=== PATIENT | female | born 1945 | race Caucasian/White ===

== ENCOUNTER 2023-02-04 14:01 | Inpatient (IN) | payer MEDICARE, OTHER ==
[~2023-02-04] VITALS: Ht 165.1 cm; Wt 89.7 kg
[2023-02-04] MEDS ORDERED: CALC-953 PO (14:36)
[2023-02-04] MEDS ORDERED: MULT-213 PO (14:36)
[2023-02-04] MEDS ORDERED: LISI40TA13 PO (14:36)
[2023-02-04] MEDS ORDERED: ACET325C7 PO (14:36)
[2023-02-04] MEDS ORDERED: ASPI-1420 PO (14:36)
[2023-02-04] MEDS ORDERED: ASCO-340 PO (14:36)
[2023-02-04] MEDS ORDERED: HYDR50TA4 PO (14:36)
[2023-02-04] MEDS ORDERED: CLON0.3T PO (14:36)
[2023-02-04 14:43] LABS: BASOPHILS # (AUTO) 0.2 K/uL (0.0-0.2); BASOPHILS % (AUTO) 1.2 % (0.0-2.0); EOSINOPHILS % (AUTO) 0.1 % (0.0-6.0); HEMATOCRIT 34 % (33-45); HEMOGLOBIN 10.9 g/dL (11.5-14.8); LYMPHOCYTES # (AUTO) 0.4 K/uL (0.8-4.8); LYMPHOCYTES % (AUTO) 3.2 % (20.0-44.0); MEAN CORPUSCULAR HEMOGLOBIN 29 PG (26.0-33.0); MEAN CORPUSCULAR HGB CONC 32 g/dl (31.0-36.0); MEAN CORPUSCULAR VOLUME 91 fL (82-100); MONOCYTES # (AUTO) 0.4 K/uL (0.1-1.30); MONOCYTES % (AUTO) 3.2 % (2.0-12.0); NEUTROPHILS # (AUTO) 12.8 K/uL (1.8-8.9); NEUTROPHILS % (AUTO) 92.3 % (43.0-81.0); PLATELET COUNT (AUTO) 699 K/uL (150-450); RED BLOOD CELL COUNT(AUTO) 3.74 MIL/uL (4.0-5.2); RED CELL DISTRIBUTION WIDTH 14.4 % (11.5-15.0); WHITE BLOOD COUNT (AUTO) 13.9 K/uL (4.3-11.0)
[2023-02-04 15:05] LABS: CALCIUM, SERUM 10.8 mg/dL (8.5-10.1); CARBON DIOXIDE 19 mmol/L (21-32); CHLORIDE 97 mmol/L (98-107); CREATININE 2.8 mg/dL (0.6-1.3); GLUCOSE 219 mg/dL (74-106); SODIUM SERUM 137 mmol/L (136-145); UREA NITROGEN, BLOOD 111 mg/dL (7-18)
[2023-02-04 15:09] LABS: BAND % (MANUAL) 11 % (0.0-5.0); LYMPHOCYTES % (MANUAL) 9 % (16-48); MONOCYTES % (MANUAL) 6 % (0-11.0); NEUTROPHILS % (MANUAL) 74 (42-76); PLATELET ESTIMATE INCREASED
[2023-02-04 15:12] LABS: ALANINE AMINOTRANSFERASE 11 U/L (12-78); ALBUMIN 2.2 g/dL (3.4-5.0); ALCOHOL, BLOOD < 3 mg/dL (0-10); ALKALINE PHOSPHATASE 104 U/L (46-116); ASPARTATE AMINOTRANSFERASE 16 U/L (15-37); BILIRUBIN,DIRECT 0.2 mg/dL (0.0-0.2); BILIRUBIN,TOTAL 0.4 mg/dL (0.2-1.0); SALICYLATE 3.5 mg/dL (2.8-20.0); TOTAL PROTEIN, SERUM 7.4 g/dL (6.4-8.2)
[2023-02-04 15:13] LABS: ACETAMINOPHEN 0 ug/ml (10-30)
[2023-02-04 15:16] LABS: APPEARANCE,URINE TURBID (CLEAR); BILIRUBIN,URINE 1+ (NEGATIVE); BLOOD, URINE 1+ Ery/uL (NEGATIVE); COLOR,URINE YELLOW (YELLOW); KETONES,URINE TRACE mg/dL (NEGATIVE); LEUKOCYTE ESTERASE ,URINE 2+ (NEGATIVE); NITRITE, URINE POSITIVE (NEGATIVE); PROTEIN,URINE 1+ mg/dl (NEGATIVE); UGLUCOSE NEGATIVE (NEGATIVE)
[2023-02-04] MEDS ORDERED: IV NS 0.9% 1,000 ML BAG IV ONE (15:30)
[2023-02-04 15:32] LABS: AMPHETAMINE, URINE NEGATIVE (NEGATIVE); BARBITURATE, URINE NEGATIVE (NEGATIVE); BENZODIAZEPINE, URINE NEGATIVE (NEGATIVE); CANNABINOID, URINE NEGATIVE (NEGATIVE); COCCAINE, URINE NEGATIVE (NEGATIVE); OPIATE, URINE NEGATIVE (NEGATIVE); PHENCYCLIDINE SCREEN,URINE NEGATIVE (NEGATIVE)
[2023-02-04 15:57] LABS: ADD URINE CULTURE YES; BACTERIA,URINE 4+ /HPF (None Seen); MUCUS,URINE Moderate /LPF (None Seen); WBC,URINE 81-100 /HPF (0-3)
[2023-02-04] MEDS ORDERED: CEFTRIAXONE 1GM BAG (ER ONLY) 50 ML IV ONE (16:42)
[2023-02-04] MEDS ORDERED: HYDROCODONE/APAP 5/325MG TABLET PO PRN (17:00)
[2023-02-04] MEDS ORDERED: MAG HYDROX/AL HYDROX/SIMETH 30 ML UDC PO PRN (17:00)
[2023-02-04] MEDS ORDERED: Z GUARD REMEDY 4 OZ OINT TP PRN (17:00)
[2023-02-04] MEDS ORDERED: HYDROCODONE/APAP 10/325MG TABLET PO PRN (17:00)
[2023-02-04] MEDS ORDERED: CEFTRIAXONE 1GM BAG (ER ONLY) 1 GM/50 ML PIGGYBACK IV ONE (17:00)
[2023-02-04] MEDS ORDERED: ONDANSETRON HCL/PF 4 MG/2 ML VIAL IVP PRN (17:00)
[2023-02-04] MEDS ORDERED: ACETAMINOPHEN 325 MG TABLET PO PRN (17:00)
[2023-02-04] MEDS ORDERED: TEMAZEPAM 15 MG CAPSULE PO PRN (17:00)
[2023-02-04] MEDS ORDERED: MAGNESIUM HYDROXIDE 30 ML UDC PO PRN (17:00)
[2023-02-04] MEDS ORDERED: DEXTROSE 50%-WATER 50 ML DISP.SYRIN IV PRN (17:30)
[2023-02-04] MEDS: IV NS 0.9% 1,000 ML IV PRN (17:44)
[2023-02-04] MEDS: BLOOD SUGAR DIAGNOSTIC 1 EACH STRIP IN SCH ×2 (17:45→22:16)
[2023-02-04] MEDS ORDERED: CEFEPIME 2 GM in IV D5W 100 ML IV SCH (18:00)
[2023-02-04 18:47] VITALS: BP 135/95; TEMP 98.8; O2SAT 100
[2023-02-04] MEDS: INSULIN REGULAR, HUMAN 100 UNIT/ML 3 ML VIAL SQ PRN ×2 (19:10→22:34)
[2023-02-04 20:00] VITALS: BP 111/58; TEMP 97.8; O2SAT 98
[2023-02-04 20:55] LABS: INR 1.05 (0.91-1.10); PARTIAL THROMBOPLASTIN TIME 23.8 SEC (24.3-34.3); PROTHROMBIN TIME 11.1 SECS (9.2-11.1)
[2023-02-04] MEDS ORDERED: HEPARIN SODIUM, PORCINE 5000 UNITS/1 ML VIAL SQ SCH (21:00)
[2023-02-04] MEDS ORDERED: HEPARIN SODIUM, PORCINE 5000 UNITS/1 ML VIAL IV ONE (21:30)
[2023-02-04] MEDS: HEPARIN INFUSION/D5W 500 ML IV PRN (22:17)
[2023-02-05 06:18] LABS: BASOPHILS % (AUTO) 0.1 % (0.0-2.0); HEMATOCRIT 30 % (33-45); HEMOGLOBIN 9.8 g/dL (11.5-14.8); LYMPHOCYTES # (AUTO) 1.2 K/uL (0.8-4.8); LYMPHOCYTES % (AUTO) 8.5 % (20.0-44.0); MEAN CORPUSCULAR HEMOGLOBIN 30 PG (26.0-33.0); MEAN CORPUSCULAR HGB CONC 33 g/dl (31.0-36.0); MEAN CORPUSCULAR VOLUME 90 fL (82-100); MONOCYTES # (AUTO) 0.8 K/uL (0.1-1.30); MONOCYTES % (AUTO) 5.9 % (2.0-12.0); NEUTROPHILS # (AUTO) 12.1 K/uL (1.8-8.9); NEUTROPHILS % (AUTO) 85.5 % (43.0-81.0); PLATELET COUNT (AUTO) 540 K/uL (150-450); RED BLOOD CELL COUNT(AUTO) 3.31 MIL/uL (4.0-5.2); RED CELL DISTRIBUTION WIDTH 14.4 % (11.5-15.0); WHITE BLOOD COUNT (AUTO) 14.1 K/uL (4.3-11.0)
[2023-02-05 06:45] LABS: CALCIUM, SERUM 9.2 mg/dL (8.5-10.1); CARBON DIOXIDE 22 mmol/L (21-32); CHLORIDE 103 mmol/L (98-107); CREATININE 2.6 mg/dL (0.6-1.3); GLUCOSE 138 mg/dL (74-106); POTASSIUM 4.1 mmol/L (3.5-5.1); SODIUM SERUM 140 mmol/L (136-145)
[2023-02-05 06:51] LABS: CHOLESTEROL 103 mg/dL (<200); HDL CHOLESTEROL 57 mg/dL (40-60); LDL 36 mg/dL (0-99); THYROID STIMULATING HORMONE 0.662 uIU/mL (0.358-3.74); TRIGLYCERIDES 115 mg/dL (30-150)
[2023-02-05] MEDS: BLOOD SUGAR DIAGNOSTIC 1 EACH STRIP IN SCH ×4 (06:52→21:44)
[2023-02-05] MEDS: INSULIN REGULAR, HUMAN 100 UNIT/ML 3 ML VIAL SQ PRN ×2 (06:53→21:44)
[2023-02-05 06:55] LABS: UREA NITROGEN, BLOOD 116 mg/dL (7-18)
[2023-02-05 07:12] LABS: INR 1.07 (0.91-1.10); PROTHROMBIN TIME 11.3 SECS (9.2-11.1)
[2023-02-05 08:00] VITALS: BP 108/48; TEMP 97.3; O2SAT 96
[2023-02-05] MEDS ORDERED: HEPARIN SODIUM, PORCINE 1000 UNIT/1 ML VIAL IV ONE (08:30)
[2023-02-05] MEDS: CALCIUM CARB 600MG /VIT D 1 EACH TABLET PO SCH ×2 (09:32→17:45)
[2023-02-05] MEDS: PANTOPRAZOLE 40 MG VIAL IV SCH (09:32)
[2023-02-05] MEDS: ASCORBIC ACID 500 MG TABLET PO SCH (09:32)
[2023-02-05] MEDS: MULTIVITAMINS,THERAGRAN 1 UDTAB TABLET PO SCH (09:32)
[2023-02-05] MEDS ORDERED: NEPRO VAN 237 ML CAN PO PRN (11:30)
[2023-02-05] MEDS: HEPARIN INFUSION/D5W 500 ML IV PRN (13:21)
[2023-02-05 16:00] VITALS: BP 105/57; TEMP 97.9; O2SAT 96
[2023-02-05] MEDS: CEFEPIME 1 GM in IV D5W 50 ML IV SCH (18:55)
[2023-02-05 20:00] VITALS: BP 80/55; TEMP 98; O2SAT 98
[2023-02-05] MEDS ORDERED: IV NS 0.9% 100 ML IV ONE (23:00)
[2023-02-05] MEDS: IV NS 0.9% 1,000 ML IV PRN (23:01)
[2023-02-06 00:10] VITALS: BP 112/50; TEMP 98.1; O2SAT 94
[2023-02-06] MEDS: IV NS 0.9% 1,000 ML IV PRN ×3 (00:40→23:09)
[2023-02-06 01:39] LABS: INR 1.12 (0.91-1.10); PROTHROMBIN TIME 11.8 SECS (9.2-11.1)
[2023-02-06] MEDS: HEPARIN INFUSION/D5W 500 ML IV PRN ×3 (03:00→09:20)
[2023-02-06 06:02] LABS: BASOPHILS % (AUTO) 0.1 % (0.0-2.0); EOSINOPHILS % (AUTO) 0.1 % (0.0-6.0); HEMATOCRIT 26 % (33-45); HEMOGLOBIN 8.2 g/dL (11.5-14.8); LYMPHOCYTES # (AUTO) 1.4 K/uL (0.8-4.8); LYMPHOCYTES % (AUTO) 10.9 % (20.0-44.0); MEAN CORPUSCULAR HEMOGLOBIN 29 PG (26.0-33.0); MEAN CORPUSCULAR HGB CONC 32 g/dl (31.0-36.0); MEAN CORPUSCULAR VOLUME 91 fL (82-100); MONOCYTES # (AUTO) 0.6 K/uL (0.1-1.30); MONOCYTES % (AUTO) 4.5 % (2.0-12.0); NEUTROPHILS # (AUTO) 10.6 K/uL (1.8-8.9); NEUTROPHILS % (AUTO) 84.4 % (43.0-81.0); PLATELET COUNT (AUTO) 431 K/uL (150-450); RED BLOOD CELL COUNT(AUTO) 2.84 MIL/uL (4.0-5.2); RED CELL DISTRIBUTION WIDTH 14.6 % (11.5-15.0); WHITE BLOOD COUNT (AUTO) 12.6 K/uL (4.3-11.0)
[2023-02-06] MEDS: BLOOD SUGAR DIAGNOSTIC 1 EACH STRIP IN SCH ×4 (06:23→21:56)
[2023-02-06] MEDS: INSULIN REGULAR, HUMAN 100 UNIT/ML 3 ML VIAL SQ PRN ×3 (06:23→16:46)
[2023-02-06 06:24] LABS: CREATINE KINASE, TOTAL 97 U/L (26-192)
[2023-02-06 06:29] LABS: ALANINE AMINOTRANSFERASE 14 U/L (12-78); ALBUMIN 1.7 g/dL (3.4-5.0); ALKALINE PHOSPHATASE 98 U/L (46-116); ASPARTATE AMINOTRANSFERASE 19 U/L (15-37); BILIRUBIN,TOTAL 0.3 mg/dL (0.2-1.0); CALCIUM, SERUM 8.8 mg/dL (8.5-10.1); CARBON DIOXIDE 23 mmol/L (21-32); CHLORIDE 106 mmol/L (98-107); CREATININE 2.7 mg/dL (0.6-1.3); GLUCOSE 90 mg/dL (74-106); MAGNESIUM 3.7 mg/dL (1.8-2.4); PHOSPHORUS 4.6 mg/dL (2.5-4.9); POTASSIUM 3.3 mmol/L (3.5-5.1); SODIUM SERUM 140 mmol/L (136-145)
[2023-02-06 06:42] LABS: UREA NITROGEN, BLOOD 123 mg/dL (7-18)
[2023-02-06 07:11] LABS: LYMPHOCYTES % (MANUAL) 14 % (16-48); MONOCYTES % (MANUAL) 6 % (0-11.0); NEUTROPHILS % (MANUAL) 80 (42-76); PLATELET ESTIMATE ADEQUATE
[2023-02-06 07:12] LABS: ANISOCYTOSIS 1+
[2023-02-06 08:00] VITALS: BP 123/55; TEMP 97.5; O2SAT 95
[2023-02-06] MEDS: CALCIUM CARB 600MG /VIT D 1 EACH TABLET PO SCH ×2 (08:18→16:25)
[2023-02-06] MEDS: PANTOPRAZOLE 40 MG VIAL IV SCH (08:18)
[2023-02-06] MEDS: ASCORBIC ACID 500 MG TABLET PO SCH (08:19)
[2023-02-06] MEDS: MULTIVITAMINS,THERAGRAN 1 UDTAB TABLET PO SCH (08:19)
[2023-02-06] MEDS ORDERED: HEPARIN INFUSION/D5W 500 ML IV PRN (15:00)
[2023-02-06 16:00] VITALS: BP 130/57; TEMP 97.9; O2SAT 97
[2023-02-06] MEDS: CEFEPIME 1 GM in IV D5W 50 ML IV SCH (17:01)
[2023-02-06 20:00] VITALS: BP 107/42; TEMP 97.7; O2SAT 95
[2023-02-06 20:12] LABS: OCCULT BLOOD STOOL POSITIVE (NEGATIVE)
[2023-02-07] MEDS: BLOOD SUGAR DIAGNOSTIC 1 EACH STRIP IN SCH ×4 (06:32→21:32)
[2023-02-07] MEDS: MULTIVITAMINS,THERAGRAN 1 UDTAB TABLET PO SCH (08:49)
[2023-02-07] MEDS: ASCORBIC ACID 500 MG TABLET PO SCH (08:49)
[2023-02-07] MEDS: CALCIUM CARB 600MG /VIT D 1 EACH TABLET PO SCH ×2 (08:49→16:29)
[2023-02-07 09:00] LABS: BASOPHILS % (AUTO) 0.1 % (0.0-2.0); EOSINOPHILS % (AUTO) 0.3 % (0.0-6.0); HEMATOCRIT 23 % (33-45); HEMOGLOBIN 7.4 g/dL (11.5-14.8); LYMPHOCYTES # (AUTO) 1.1 K/uL (0.8-4.8); LYMPHOCYTES % (AUTO) 13.4 % (20.0-44.0); MEAN CORPUSCULAR HEMOGLOBIN 29 PG (26.0-33.0); MEAN CORPUSCULAR HGB CONC 32 g/dl (31.0-36.0); MEAN CORPUSCULAR VOLUME 92 fL (82-100); MONOCYTES # (AUTO) 0.5 K/uL (0.1-1.30); MONOCYTES % (AUTO) 6.1 % (2.0-12.0); NEUTROPHILS # (AUTO) 6.4 K/uL (1.8-8.9); NEUTROPHILS % (AUTO) 80.1 % (43.0-81.0); PLATELET COUNT (AUTO) 339 K/uL (150-450); RED BLOOD CELL COUNT(AUTO) 2.52 MIL/uL (4.0-5.2); RED CELL DISTRIBUTION WIDTH 14.6 % (11.5-15.0)
[2023-02-07] MEDS ORDERED: PANTOPRAZOLE 40 MG/PACK PACK PO SCH (09:00)
[2023-02-07 09:21] LABS: CALCIUM, SERUM 8.1 mg/dL (8.5-10.1); CARBON DIOXIDE 23 mmol/L (21-32); CHLORIDE 113 mmol/L (98-107); CREATININE 1.4 mg/dL (0.6-1.3); GLUCOSE 82 mg/dL (74-106); POTASSIUM 3.2 mmol/L (3.5-5.1); SODIUM SERUM 146 mmol/L (136-145); UREA NITROGEN, BLOOD 77 mg/dL (7-18)
[2023-02-07] MEDS: IV NS 0.9% 1,000 ML IV PRN (10:14)
[2023-02-07 10:58] LABS: ANISOCYTOSIS 1+; LYMPHOCYTES % (MANUAL) 16 % (16-48); METAMYELOCYTES % 1 % (0-0); MONOCYTES % (MANUAL) 2 % (0-11.0); NEUTROPHILS % (MANUAL) 81 (42-76); PLATELET ESTIMATE ADEQUATE
[2023-02-07] MEDS: HEPARIN INFUSION/D5W 500 ML IV PRN (11:37)
[2023-02-07] MEDS: INSULIN REGULAR, HUMAN 100 UNIT/ML 3 ML VIAL SQ PRN ×2 (11:51→17:49)
[2023-02-07] MEDS: CEFEPIME 1 GM in IV D5W 50 ML IV SCH (17:28)
[2023-02-07] MEDS: PANTOPRAZOLE 40 MG VIAL IV SCH (20:53)
[2023-02-07 23:46] VITALS: BP 147/60; TEMP 98.6
[2023-02-08] VITALS (10 sets, daily range): BP systolic 110–144; BP diastolic 52–84; TEMP 97.9–99.3; O2SAT 96–98
[2023-02-08] MEDS: IV NS 0.9% 1,000 ML IV PRN (03:07)
[2023-02-08] MEDS: BLOOD SUGAR DIAGNOSTIC 1 EACH STRIP IN SCH ×4 (06:35→21:51)
[2023-02-08 07:02] LABS: BASOPHILS % (AUTO) 0.1 % (0.0-2.0); EOSINOPHILS % (AUTO) 0.6 % (0.0-6.0); HEMATOCRIT 26 % (33-45); HEMOGLOBIN 8.4 g/dL (11.5-14.8); LYMPHOCYTES # (AUTO) 1.3 K/uL (0.8-4.8); LYMPHOCYTES % (AUTO) 15.3 % (20.0-44.0); MEAN CORPUSCULAR HEMOGLOBIN 29 PG (26.0-33.0); MEAN CORPUSCULAR HGB CONC 32 g/dl (31.0-36.0); MEAN CORPUSCULAR VOLUME 91 fL (82-100); MONOCYTES # (AUTO) 0.6 K/uL (0.1-1.30); MONOCYTES % (AUTO) 6.9 % (2.0-12.0); NEUTROPHILS # (AUTO) 6.4 K/uL (1.8-8.9); NEUTROPHILS % (AUTO) 77.1 % (43.0-81.0); PLATELET COUNT (AUTO) 289 K/uL (150-450); RED BLOOD CELL COUNT(AUTO) 2.89 MIL/uL (4.0-5.2); RED CELL DISTRIBUTION WIDTH 16.2 % (11.5-15.0); WHITE BLOOD COUNT (AUTO) 8.3 K/uL (4.3-11.0)
[2023-02-08 07:07] LABS: PTH, INTACT 38 pg/mL (15-65)
[2023-02-08 07:32] LABS: CALCIUM, SERUM 8.8 mg/dL (8.5-10.1); CREATININE 1.1 mg/dL (0.6-1.3); POTASSIUM 3.3 mmol/L (3.5-5.1)
[2023-02-08] MEDS ORDERED: POTASSIUM CHLORIDE 20 MEQ TAB.PRT.SR PO ONE (08:30)
[2023-02-08] MEDS: PANTOPRAZOLE 40 MG VIAL IV SCH ×2 (08:42→20:51)
[2023-02-08] MEDS: IV 1/2NS 1000 ML 1,000 ML IV PRN (08:44)
[2023-02-08] MEDS: ASCORBIC ACID 500 MG TABLET PO SCH (08:45)
[2023-02-08] MEDS: MULTIVITAMINS,THERAGRAN 1 UDTAB TABLET PO SCH (08:45)
[2023-02-08] MEDS: CALCIUM CARB 600MG /VIT D 1 EACH TABLET PO SCH ×2 (08:45→17:59)
[2023-02-08] MEDS: HEPARIN INFUSION/D5W 500 ML IV PRN (10:14)
[2023-02-08] MEDS ORDERED: CEFEPIME 1 GM in IV D5W 50 ML IV SCH (11:00)
[2023-02-08] MEDS: INSULIN REGULAR, HUMAN 100 UNIT/ML 3 ML VIAL SQ PRN ×2 (11:44→16:51)
[2023-02-08 12:33] LABS: *SPE A/G RATIO 0.7 (0.7-1.7); *SPE ALBUMIN 2.1 g/dL (2.9-4.4); *SPE ALPHA-1-GLOBULIN 0.5 g/dL (0.0-0.4); *SPE ALPHA-2-GLOBULIN 1.2 g/dL (0.4-1.0); *SPE BETA GLOBULIN 0.6 g/dL (0.7-1.3); *SPE GLOBULIN, TOTAL 2.9 g/dL (2.2-3.9); *SPE M-SPIKE Not Observed g/dL (Not Observed); *SPEGAMMA GLOBULIN 0.7 g/dL (0.4-1.8)
[2023-02-08] MEDS: LEVOFLOXACIN (250MG) 250 MG TABLET PO SCH (15:35)
[2023-02-09] MEDS: IV 1/2NS 1000 ML 1,000 ML IV PRN ×2 (01:10→15:31)
[2023-02-09 06:45] LABS: BASOPHILS % (AUTO) 0.1 % (0.0-2.0); EOSINOPHILS # (AUTO) 0.1 K/uL (0.0-0.7); EOSINOPHILS % (AUTO) 0.9 % (0.0-6.0); HEMATOCRIT 24 % (33-45); HEMOGLOBIN 7.7 g/dL (11.5-14.8); LYMPHOCYTES # (AUTO) 1.3 K/uL (0.8-4.8); MEAN CORPUSCULAR HEMOGLOBIN 29 PG (26.0-33.0); MEAN CORPUSCULAR HGB CONC 32 g/dl (31.0-36.0); MEAN CORPUSCULAR VOLUME 91 fL (82-100); MONOCYTES # (AUTO) 0.6 K/uL (0.1-1.30); MONOCYTES % (AUTO) 7.4 % (2.0-12.0); NEUTROPHILS # (AUTO) 5.8 K/uL (1.8-8.9); NEUTROPHILS % (AUTO) 74.6 % (43.0-81.0); PLATELET COUNT (AUTO) 271 K/uL (150-450); RED BLOOD CELL COUNT(AUTO) 2.66 MIL/uL (4.0-5.2); RED CELL DISTRIBUTION WIDTH 16.3 % (11.5-15.0); WHITE BLOOD COUNT (AUTO) 7.8 K/uL (4.3-11.0)
[2023-02-09 07:09] LABS: CARBON DIOXIDE 22 mmol/L (21-32); CHLORIDE 114 mmol/L (98-107); POTASSIUM 3.4 mmol/L (3.5-5.1); SODIUM SERUM 147 mmol/L (136-145)
[2023-02-09] MEDS: BLOOD SUGAR DIAGNOSTIC 1 EACH STRIP IN SCH ×4 (07:28→21:36)
[2023-02-09 08:00] VITALS: BP 119/50; TEMP 98.1; O2SAT 99
[2023-02-09 08:09] LABS: CALCIUM, SERUM 8.7 mg/dL (8.5-10.1); GLUCOSE 92 mg/dL (74-106); UREA NITROGEN, BLOOD 46 mg/dL (7-18)
[2023-02-09] MEDS: ASCORBIC ACID 500 MG TABLET PO SCH (09:46)
[2023-02-09] MEDS: CALCIUM CARB 600MG /VIT D 1 EACH TABLET PO SCH ×2 (09:46→17:27)
[2023-02-09] MEDS: MULTIVITAMINS,THERAGRAN 1 UDTAB TABLET PO SCH (09:46)
[2023-02-09] MEDS: PANTOPRAZOLE 40 MG VIAL IV SCH ×2 (09:46→21:28)
[2023-02-09] MEDS ORDERED: POTASSIUM CHLORIDE 20 MEQ TAB.PRT.SR PO SCH (10:30)
[2023-02-09] MEDS ORDERED: SUCRALFATE 1 G/10 ML UDC GT SCH (12:00)
[2023-02-09] MEDS: HEPARIN INFUSION/D5W 500 ML IV PRN (12:21)
[2023-02-09] MEDS: LEVOFLOXACIN (250MG) 250 MG TABLET PO SCH (15:15)
[2023-02-09 16:00] VITALS: BP 137/60; TEMP 98; O2SAT 97
[2023-02-09] MEDS: APIXABAN 5 MG TABLET PO SCH (17:23)
[2023-02-09] MEDS: INSULIN REGULAR, HUMAN 100 UNIT/ML 3 ML VIAL SQ PRN (18:02)
[2023-02-09 20:00] VITALS: BP 128/59; TEMP 98.6; O2SAT 96
[2023-02-10] MEDS ORDERED: IV D5/0.45 NACL 1,000 ML IV PRN (03:00)
[2023-02-10 06:46] LABS: BASOPHILS % (AUTO) 0.1 % (0.0-2.0); EOSINOPHILS # (AUTO) 0.1 K/uL (0.0-0.7); EOSINOPHILS % (AUTO) 1.3 % (0.0-6.0); HEMATOCRIT 24 % (33-45); HEMOGLOBIN 7.8 g/dL (11.5-14.8); LYMPHOCYTES # (AUTO) 1.2 K/uL (0.8-4.8); LYMPHOCYTES % (AUTO) 18.5 % (20.0-44.0); MEAN CORPUSCULAR HEMOGLOBIN 29 PG (26.0-33.0); MEAN CORPUSCULAR HGB CONC 33 g/dl (31.0-36.0); MEAN CORPUSCULAR VOLUME 90 fL (82-100); MONOCYTES # (AUTO) 0.5 K/uL (0.1-1.30); MONOCYTES % (AUTO) 7.7 % (2.0-12.0); NEUTROPHILS # (AUTO) 4.6 K/uL (1.8-8.9); NEUTROPHILS % (AUTO) 72.4 % (43.0-81.0); PLATELET COUNT (AUTO) 263 K/uL (150-450); RED BLOOD CELL COUNT(AUTO) 2.64 MIL/uL (4.0-5.2); RED CELL DISTRIBUTION WIDTH 16.2 % (11.5-15.0); WHITE BLOOD COUNT (AUTO) 6.4 K/uL (4.3-11.0)
[2023-02-10] MEDS: BLOOD SUGAR DIAGNOSTIC 1 EACH STRIP IN SCH ×4 (06:50→22:06)
[2023-02-10] MEDS: INSULIN REGULAR, HUMAN 100 UNIT/ML 3 ML VIAL SQ PRN (06:51)
[2023-02-10 07:02] LABS: CALCIUM, SERUM 8.1 mg/dL (8.5-10.1); CARBON DIOXIDE 23 mmol/L (21-32); CHLORIDE 112 mmol/L (98-107); CREATININE 0.9 mg/dL (0.6-1.3); GLUCOSE 96 mg/dL (74-106); POTASSIUM 3.5 mmol/L (3.5-5.1); SODIUM SERUM 144 mmol/L (136-145); UREA NITROGEN, BLOOD 30 mg/dL (7-18)
[2023-02-10 08:00] VITALS: BP 122/54; TEMP 98.1; O2SAT 98
[2023-02-10] MEDS: VENLAFAXINE XR 37.5 MG CAP.SR.24H PO SCH (09:44)
[2023-02-10] MEDS: ASCORBIC ACID 500 MG TABLET PO SCH (09:44)
[2023-02-10] MEDS: MULTIVITAMINS,THERAGRAN 1 UDTAB TABLET PO SCH (09:44)
[2023-02-10] MEDS: CALCIUM CARB 600MG /VIT D 1 EACH TABLET PO SCH ×2 (09:44→16:10)
[2023-02-10] MEDS: APIXABAN 5 MG TABLET PO SCH ×2 (09:45→16:10)
[2023-02-10] MEDS: PANTOPRAZOLE 40 MG VIAL IV SCH ×2 (09:48→20:26)
[2023-02-10] MEDS ORDERED: Quetiapine Fumarate PO (11:12)
[2023-02-10] MEDS ORDERED: Nepro PO (11:12)
[2023-02-10] MEDS ORDERED: VENL37.55 PO (11:12)
[2023-02-10] MEDS ORDERED: LEVO250T59 PO (11:12)
[2023-02-10] MEDS ORDERED: APIX5TAB PO (11:12)
[2023-02-10] MEDS: LEVOFLOXACIN (250MG) 250 MG TABLET PO SCH (15:56)
[2023-02-10 16:00] VITALS: BP 135/62; TEMP 98.1; O2SAT 95
[2023-02-10 20:00] VITALS: BP 132/57; TEMP 97.3; O2SAT 97
[2023-02-10] MEDS ORDERED: QUETIAPINE FUMARATE 25 MG TABLET PO SCH (22:00)
[2023-02-11] MEDS: BLOOD SUGAR DIAGNOSTIC 1 EACH STRIP IN SCH (06:33)
[2023-02-11] MEDS: INSULIN REGULAR, HUMAN 100 UNIT/ML 3 ML VIAL SQ PRN (06:34)
[2023-02-11 08:00] VITALS: BP_SYST 126; BP_SYST 131; BP_DIAS 54; BP_DIAS 64; TEMP 98.1; TEMP 98.4; O2SAT 98
[2023-02-11] MEDS: PANTOPRAZOLE 40 MG VIAL IV SCH (09:23)
[2023-02-11] MEDS: MULTIVITAMINS,THERAGRAN 1 UDTAB TABLET PO SCH (09:23)
[2023-02-11] MEDS: ASCORBIC ACID 500 MG TABLET PO SCH (09:23)
[2023-02-11] MEDS: VENLAFAXINE XR 37.5 MG CAP.SR.24H PO SCH (09:23)
[2023-02-11] MEDS: CALCIUM CARB 600MG /VIT D 1 EACH TABLET PO SCH (09:23)
[2023-02-11] MEDS: APIXABAN 5 MG TABLET PO SCH (09:25)
[2023-02-11] MEDS ORDERED: APIX5TAB PO (10:45)
== END 2023-02-11 11:00 | disposition home health service (06) | DRG 871 ==
LOC: ER 14:01 → MED 16:48
PROVIDERS: ADMIT Nurse Practitioner Acute Care; ATTEND Nurse Practitioner Acute Care
PROC: 05H533Z Insertion of Infusion Device into Right Subclavian Vein, Percutaneous Approach (ICD-10-PCS; 2023-02-05)
PROC: B546ZZA Ultrasonography of Right Subclavian Vein, Guidance (ICD-10-PCS; 2023-02-05)
PROC: 30233N1 Transfusion of Nonautologous Red Blood Cells into Peripheral Vein, Percutaneous Approach (ICD-10-PCS; principal; 2023-02-07)
DX: A41.9 Sepsis, unspecified organism (principal); G92.8 Other toxic encephalopathy; N17.0 Acute kidney failure with tubular necrosis; N39.0 Urinary tract infection, site not specified; D68.69 Other thrombophilia; E87.0 Hyperosmolality and hypernatremia; E87.20 Acidosis, unspecified; F33.3 Major depressive disorder, recurrent, severe with psychotic symptoms; I82.412 Acute embolism and thrombosis of left femoral vein; D63.8 Anemia in other chronic diseases classified elsewhere; D75.839 Thrombocytosis, unspecified; E83.41 Hypermagnesemia; I10 Essential (primary) hypertension; M19.90 Unspecified osteoarthritis, unspecified site; M89.8X9 Other specified disorders of bone, unspecified site; R62.7 Adult failure to thrive; Z74.01 Bed confinement status; Z68.35 Body mass index [BMI] 35.0-35.9, adult; Z96.653 Presence of artificial knee joint, bilateral; Z88.1 Allergy status to other antibiotic agents; E11.9 Type 2 diabetes mellitus without complications; Z79.84 Long term (current) use of oral hypoglycemic drugs; B96.20 Unspecified Escherichia coli [E. coli] as the cause of diseases classified elsewhere; E66.9 Obesity, unspecified; Z68.32 Body mass index [BMI] 32.0-32.9, adult; Z74.09 Other reduced mobility; E86.9 Volume depletion, unspecified; R19.5 Other fecal abnormalities; E86.0 Dehydration; F43.21 Adjustment disorder with depressed mood
CPT/HCPCS: 36415; 71045-TC; 76770-TC; 80048-TC; 80053-TC; 80061-TC; 80076-TC; 81001; 82272-TC; 82550-TC; 82962-TC; 83735-TC; 83970; 84100-TC; 84155; 84165; 84443-TC; 85025-TC; 85610-TC; 85730-TC; 86850-TC; 87040-TC; 87081-TC; 87086-TC; 93307-TC; 93970-TC; 97110-TC; 97112-TC; 97116-TC; 97530-TC; A4223; A6403; C9113; G0378; G0480; J0692; J0696; J1644; J1815; J2405; J3490; J7030; J7050; J7060; P9016